=== PATIENT | male | born 2000 | race Caucasian/White ===

== ENCOUNTER 2022-07-16 03:48 | Emergency (ER) | payer OTHER ==
[2022-07-16 05:31] LABS: BASOPHIL 0.7 % (0-2); EOSINOPHIL 2.7 % (0-5); HCT 48.5 % (42.0-52.0); LYMPHOCYTE 22.6 % (15-48); MCH 30.1 pg (25.0-31.0); MCHC 35.1 g/dL (32.0-36.0); MCV 85.8 fL (78.0-100.0); MONOCYTE 7.3 % (0-12); MPV 8.7 fL (6.0-9.5); NEUTROPHIL 66.4 % (41-80); NRBC 0; PLT 294 K/uL (150-400); RBC 5.65 M/uL (4.70-6.00); RDW 11.5 % (11.5-14.0); WBC 8.9 K/uL (4.0-10.5)
[2022-07-16 06:28] LABS: ALBUMIN 4.1 g/dL (3.4-5.0); BILIRUBIN - TOTAL 0.4 mg/dL (0.2-1.0); BUN/CREAT RATIO (CALC) 14.6 RATIO; CREATININE 1.03 mg/dL (0.67-1.17); GLOBULIN (CALCULATION) 3.2 g/dL; POTASSIUM 4.5 mmol/L (3.5-5.1); TOTAL PROTEIN 7.3 g/dL (6.4-8.2)
== END 2022-07-16 09:16 | disposition left against medical advice (07) ==
LOC: FER 03:48
PROVIDERS: Emergency Medicine
DX: R10.31 Right lower quadrant pain (principal); F17.200 Nicotine dependence, unspecified, uncomplicated; Z28.310 Unvaccinated for COVID-19; Z53.29 Procedure and treatment not carried out because of patient's decision for other reasons
CPT/HCPCS: 36415; 80053; 83690; 85025; J1885; Q9967